=== PATIENT | male | born 1940 | race Caucasian/White ===

== ENCOUNTER 2018-08-25 18:01 | Emergency (ER) | payer OTHER ==
[~2018-08-25] VITALS: Ht 177.8 cm; Wt 104.3 kg
[~2018-08-25 18:01] MED LIST: ACETAMINOPHEN325 M1 PO; ADULT LOW DOSE81 MG PO; ALLEGRA180 MG PO; APAP500 PO; ASPIRIN325 OR; B COMPLEX-VITA1 EACH PO; B12INJ PO; BACTROBAN NASAL1 GM NS; CARISOPRODOL250 MG PO; CELEBREX 200 M200 MG PO; CLONAZEPAM 1 MG1 M1 PO; CO Q-10100 MG PO; DEPLIN15 MG PO; EFFEXOR XR150 MG PO; EFFEXOR XR75 MG OR; FISH OIL 1,001000 M1 PO; GLUCOSAMINE1000 MG PO; GRAM-O-LECI1000 MG PO; HYDROCODON-ACE1 EACH PO; IRON325 PO; LAMICTAL XR200 MG OR; LAMICTAL XR200 MG PO; LORTAB PO; LYRICA100 MG PO; MOM PO; NEXIUM 40 MG CA40 M1 PO; NEXIUM40 MG OR; NIACIN 500 MG500 M1 PO; PERCOCET 5-3251 EACH PO; PHENERGAN 25 MG25 M1 PO; PRIMIDONE50 MG OR; SENNA PO; TOPROL XL25 MG OR; TOPROL XL25 MG PO; VITAMIN D31000 UNI2 PO; VITAMINC500 PO; WELLBUTRIN SR150 MG; XYZAL5 MG OR; ZOCOR40 MG OR; ZOCOR40 MG PO
[2018-08-25] MEDS ORDERED: LIPITOR80 MG PO (18:35)
[2018-08-25] MEDS ORDERED: KEFLEX500 M1 PO (18:38)
[2018-08-25 19:12] VITALS: BP 121/62
== END 2018-08-25 19:12 | disposition home or self-care (01) ==
LOC: ER 18:01
DX: L03.011 Cellulitis of right finger (principal); G47.30 Sleep apnea, unspecified; F32.9 Major depressive disorder, single episode, unspecified; F41.9 Anxiety disorder, unspecified; K21.9 Gastro-esophageal reflux disease without esophagitis; Z95.1 Presence of aortocoronary bypass graft; Z88.7 Allergy status to serum and vaccine

== ENCOUNTER → 2019-06-21 | Outpatient (CLI) | payer OTHER ==
[~2019-06-21] MED LIST changes: +KEFLEX500 M1 PO; +LIPITOR80 MG PO
== END ==
LOC: CANPRECLI → SJCVCIMAG 08:32 → NUC 08:32 → SJCVCIMAG 09:36 → NUC 13:20
DX: R06.00 Dyspnea, unspecified (principal)

== ENCOUNTER → 2019-12-15 | Outpatient (CLI) | payer OTHER | LOC: SJCVCIMAG 07:37 | PROVIDERS: ATTEND Internal Medicine Cardiovascular Disease | DX: I71.4 Abdominal aortic aneurysm, without rupture (principal); R94.31 Abnormal electrocardiogram [ECG] [EKG]; R00.1 Bradycardia, unspecified; I73.9 Peripheral vascular disease, unspecified; I25.10 Atherosclerotic heart disease of native coronary artery without angina pectoris; I10 Essential (primary) hypertension; E78.00 Pure hypercholesterolemia, unspecified; Z95.1 Presence of aortocoronary bypass graft; Z79.899 Other long term (current) drug therapy ==

== ENCOUNTER → 2020-03-07 | Outpatient (CLI) | payer OTHER | LOC: RAD 09:12 | PROVIDERS: ATTEND Internal Medicine | DX: R06.02 Shortness of breath (principal); Z77.018 Contact with and (suspected) exposure to other hazardous metals ==

== ENCOUNTER → 2020-03-12 | Outpatient (CLI) | payer OTHER | LOC: SJCVC 09:16 | PROVIDERS: ATTEND Internal Medicine Cardiovascular Disease | DX: R94.31 Abnormal electrocardiogram [ECG] [EKG] (principal); I25.10 Atherosclerotic heart disease of native coronary artery without angina pectoris; I10 Essential (primary) hypertension; E78.00 Pure hypercholesterolemia, unspecified; I71.4 Abdominal aortic aneurysm, without rupture; Z95.1 Presence of aortocoronary bypass graft; Z79.899 Other long term (current) drug therapy ==

== ENCOUNTER → 2020-03-13 | Outpatient (CLI) | payer OTHER | LOC: SJCVCIMAG 07:47 | PROVIDERS: ATTEND Internal Medicine Cardiovascular Disease | DX: I08.8 Other rheumatic multiple valve diseases (principal); R00.1 Bradycardia, unspecified; I11.9 Hypertensive heart disease without heart failure; I25.10 Atherosclerotic heart disease of native coronary artery without angina pectoris; Z95.1 Presence of aortocoronary bypass graft; Z79.899 Other long term (current) drug therapy ==

== ENCOUNTER → 2020-03-15 | Outpatient (CLI) | payer OTHER ==
[~2020-03-15] MED LIST changes: +VITAMIN D31250 MCG PO
== END ==
LOC: SJCVC 14:17
PROVIDERS: ATTEND Internal Medicine Cardiovascular Disease
DX: R94.31 Abnormal electrocardiogram [ECG] [EKG] (principal); R00.1 Bradycardia, unspecified; I25.10 Atherosclerotic heart disease of native coronary artery without angina pectoris; I10 Essential (primary) hypertension; E78.00 Pure hypercholesterolemia, unspecified; Z95.1 Presence of aortocoronary bypass graft; Z79.899 Other long term (current) drug therapy

== ENCOUNTER → 2020-03-19 | Outpatient (CLI) | payer OTHER ==
[~2020-03-19] VITALS: Ht 175.3 cm; Wt 107.5 kg
[2020-03-19 07:08] VITALS: BP 115/56
--- NOTE | 2020-03-19 07:38 | EKG ---
[facility] [place] [address] ELECTROCARDIOGRAM REPORT Name: CHEIKH BAZAN Room #: REG [facility]#: [id number] Admission: 03/19/20 Attend Phys: Davey Ellis MD Discharge: Date of : 44 Report #: [id number] THIS REPORT FOR: cc: Ronald Peterson,Juan Cardenas Jr.,Juan Frank,Harvey Alcala MD [facility] ~ THIS REPORT FOR: //name// [facility] Test Date: 2020-03-19 Test Time: 07:21:02 Pat Name: CHEIKH BAZAN Department: Room: Gender: Rn Labor Delivery: ALEKSANDRA : 1940 Requested By: Davey Ellis Order Number: [id number] MD: Harvey Frank Measurements Intervals [place] Rate: 54 P: 1 CA: 164 QRS: -28 QRSD: 91 T: -23 QT: 413 QTc: 392 Interpretive Statements Sinus bradycardia Atrial premature complex Abnormal R-wave progression, early transition Left ventricular hypertrophy Compared to ECG 10/24/2014 12:50:31 Atrial premature complex(es) now present Electronically Signed On 03-19-2020 7:38:16 [employer] by Harvey Frank [email or web address] <ELECTRONICALLY SIGNED> By: Harvey Frank MD, FAC 03/19/20737 0 0 Harvey Frank MD, FAC /EPI
--- NOTE | 2020-03-19 11:21 | CATHLAB ---
[facility] [place] [address] INVASIVE PROCEDURE REPORT Name: CHEIKH BAZAN Room #: REG [facility]#: [id number] Admission: 03/19/20 Attend Phys: Davey Ellis MD Discharge: Date of : 44 Report #: [id number] THIS REPORT FOR: cc: Ronald Peterson,Juan Jasso MD, Jr., MD, Jin S. MD ~ APPROVED REPORT Study performed: 03/19/2020 07:47:28 Patient Details Patient Status: Out-Patient Room #: The patient is a 79 year-old male Event Personnel Davey Ellis Voice Pathologist, Marty Lynch RN RN, eBrta Garcia RTR Nnamdi Mckee Sherra RTR Monitor Procedures Performed Art Access - R femoral artery* Left Heart Cath Coronaries, Bypass Grafts [id number] LHCCORCABG 93807 Initial Mod Sed Same Phys/QHP Gr5y 321681 51997 Mod Sed Same Phys/QHP Ea 812915 Indication Dyspnea Risk Factors Peripheral Vascular Disease, HypercholesterolemiaPhysical Activity, Coronary Artery DiseaseHypertension Previous Procedures/Diagnoses Previous CABG Procedure Narrative The Right Groin^ was infiltrated with 1% Lidocaine subcutaneous anesthesia. A PINNACLE 4FR Sheath #[id number] sheath was inserted into the RFA^. Coronary angiography was performed using coronary diagnostic catheters. The right coronary system was accessed and visualized with a JR4 catheter. The left coronary system was accessed and visualized with a JL5 catheter. The left ventricle was accessed and visualized with a JR4 catheter. Hemostasis was obtained with manual pressure following sheath removal without any complications. The patient tolerated the procedure well and there were no [facility] [address] [address] INVASIVE PROCEDURE REPORT Name: CHEIKH BAZAN Room #: REG [facility]#: [id number] Admission: 03/19/20 Attend Phys: Davey Ellis MD Discharge: Date of : 44 Report #: [id number] complications associated with the procedure. There was no hematoma. Intraoperative Conscious Sedation Sedation start time: 819 Case end Time: 859 Fentanyl 50 mcg Versed 0.5 mg Fluoro Time: 7.10 minutes Dose: DAP 8588.20 cGycm2 1144 mGy Contrast Type and Amount: Omnipaque 85 ml Coronary Angiography The patient's coronary anatomy is right dominant. 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 LAD There is a patent FUCHS graft with an end-to-side anastomosis to the mid LAD segment. After the anastomosis, there is SANDOR-3 blood flow in the mid to apical LAD. Diagonal 1 There is a patent sequential SVG to the first diagonal artery, first obtuse marginal artery, second obtuse marginal artery and third obtuse marginal artery. Circumflex There is a patent sequential SVG to the first diagonal artery, first obtuse marginal artery, second obtuse marginal artery and third obtuse marginal artery. Right Coronary There is a severe occlusion in the ostium of the RCA. R PDA There is a patent SVG to the PDA. After the anastomosis, there is also retrograde filling of an RPL branch. Left Ventriculography Left Ventriculography was not performed. Ejection Fraction was >55% based off patient's Echocardiogram. An LVEDP was measured and there is no gradient across the outflow tract. Hemodynamics The aortic pressure is 113/49 mmHg with a mean of 73 mmHg. The left ventricular pressure is 111/-6 mmHg with a mean of mmHg. The left ventricular end diastolic pressure is 4 mmHg. Conclusion 1. There is a patent FUCHS graft to the LAD. 2. There is a patent sequential SVG to the first diagonal artery, first obtuse marginal artery, second obtuse marginal artery and third obtuse marginal artery. [facility] [address] [place] [address] INVASIVE PROCEDURE REPORT Name: CHEIKH BAZAN Room #: [facility]#: [id number] Admission: 03/19/20 Attend Phys: Davey Ellis MD Discharge: Date of : 44 Report #: [id number] 3. There is a patent SVG to the PDA/RPL. 4. There is normal LV systolic function. 5. Recommend guideline directed medical therapy. <ELECTRONICALLY SIGNED> By: Davey Ellis MD 03/19/201119 19 19 Davey Ellis MD /INF
== END | disposition home or self-care (01) ==
LOC: CATH 06:45
PROVIDERS: ATTEND Internal Medicine Cardiovascular Disease
DX: R06.00 Dyspnea, unspecified (principal); I25.10 Atherosclerotic heart disease of native coronary artery without angina pectoris; I10 Essential (primary) hypertension; E78.00 Pure hypercholesterolemia, unspecified; F32.9 Major depressive disorder, single episode, unspecified; F41.9 Anxiety disorder, unspecified; K21.9 Gastro-esophageal reflux disease without esophagitis; G47.30 Sleep apnea, unspecified; Z95.1 Presence of aortocoronary bypass graft; Z98.890 Other specified postprocedural states; Z79.899 Other long term (current) drug therapy; Z88.8 Allergy status to other drugs, medicaments and biological substances

== ENCOUNTER → 2020-10-15 | Outpatient (CLI) | payer OTHER | LOC: SJCVC 10:38 | PROVIDERS: ATTEND Internal Medicine Cardiovascular Disease | DX: R94.31 Abnormal electrocardiogram [ECG] [EKG] (principal); I25.10 Atherosclerotic heart disease of native coronary artery without angina pectoris; I10 Essential (primary) hypertension; E78.00 Pure hypercholesterolemia, unspecified; G47.33 Obstructive sleep apnea (adult) (pediatric); R06.00 Dyspnea, unspecified; R60.9 Edema, unspecified; Z95.1 Presence of aortocoronary bypass graft; Z79.82 Long term (current) use of aspirin; Z79.899 Other long term (current) drug therapy; Z88.8 Allergy status to other drugs, medicaments and biological substances; Z82.49 Family history of ischemic heart disease and other diseases of the circulatory system ==

== ENCOUNTER → 2021-04-15 | Outpatient (CLI) | payer OTHER | LOC: SJCVC 10:02 | PROVIDERS: ATTEND Internal Medicine Cardiovascular Disease | DX: R94.31 Abnormal electrocardiogram [ECG] [EKG] (principal); I11.9 Hypertensive heart disease without heart failure; I49.8 Other specified cardiac arrhythmias; I25.10 Atherosclerotic heart disease of native coronary artery without angina pectoris; E78.00 Pure hypercholesterolemia, unspecified; R06.00 Dyspnea, unspecified; R60.9 Edema, unspecified; Z79.82 Long term (current) use of aspirin; Z79.899 Other long term (current) drug therapy; Z88.8 Allergy status to other drugs, medicaments and biological substances; Z98.61 Coronary angioplasty status; Z98.890 Other specified postprocedural states ==